=== PATIENT | female | born 1955 | race African-American/Black ===

== ENCOUNTER 2016-05-29 08:02 | Inpatient (IN) | payer MEDICARE, OTHER ==
--- NOTE | ~2016-05-29 | OP ---
Record Of [facility] [address] [place] [place]. [address] NAME: KARLENE NAVA : 57 STATUS : ADM IN PAT#: [id number] AGE: 60 ADM/REG DATE : 05/29/16 MR#: [id number] REPORT SERV DATE: 06/04/16 DICTATED BY: FRANKLYN RIVAS DATE: 06/03/16 REPORT STATUS : Draft TRANSCRIBED BY: MODSophia DATE: 06/03/16 DATE OF PROCEDURE: 06/03/2016 SURGEON: Franklyn Rivas DPM SANDWICH HAND: None. PREOPERATIVE DIAGNOSIS: Right hallux and second toe gangrene with osteomyelitis. POSTOPERATIVE DIAGNOSIS: Right hallux and second toe gangrene with osteomyelitis. PROCEDURES: 1. Right hallux amputation. 2. Right second toe amputation. 3. Right foot rotational skin flap for primary closure. ANESTHESIA: General. HEMOSTASIS: None. ESTIMATED BLOOD LOSS: Approximately 10 mL. MATERIALS UTILIZED: 4-0 Prolene. INJECTABLES: 20 mL of 0.5% ropivacaine plain. SPECIMENS: Bone sent off for microbiology as well as histopathology, remaining digit sent for gross pathology. COMPLICATIONS: None. CONDITION: Stable. JUSTIFICATION FOR PROCEDURE: The patient is a pleasant 60-year-old female, who presented to my office last week with a necrotic, gangrenous hallux and second toe, nonpalpable pulses, and multiple comorbidities. I sent the patient in for admission to be worked up, have advanced imaging in hopes for revascularization in order to optimize the patient for amputation of the infected digits. The patient understands all the risks, benefits, alternatives, and postop course in detail. The patient understands this is a limb salavage procedure, that she is at risk of losing her limb as well as her life. The patient has had a transmetatarsal amputation on the left foot. The patient admits to being noncompliant; poorly controlled with a long history of smoking cigarettes, being a poorly uncontrolled diabetic, on hemodialysis, poor peripheral vascular disease. Dr. Euceda recently performed a revascularization procedure of the right foot, which increased the temperature and caused the abscess and osteomyelitis underlying the second digit as well as the hallux to become more pronounced since revascularization. The increased temperature of the foot is a good Record Of [place] [id number] [facility] [place]. [address] NAME: KARLENE NAVA : 57 STATUS : ADM IN PAT#: [id number] AGE: 60 ADM/REG DATE : 05/29/16 MR#: [id number] REPORT SERV DATE: 06/04/16 DICTATED BY: FRANKLYN RIVAS DATE: 06/03/16 REPORT STATUS : Draft TRANSCRIBED BY: CLARKE DATE: 06/03/16 sign that we have increased blood flow and hope to heal this ulcer. The patient knows that she is at increased risk for wound complications. She understands this and we will proceed with surgical intervention today. Again, the patient understands that as in surgeries, there are no guarantees, none of which have been given, stated, or implied. DESCRIPTION OF PROCEDURE AND FINDINGS: The patient was wheeled into the operating room and placed on the operating room table in the supine position, at which time, anesthesia was administered by Anesthesia Service, and the right lower extremity was prepped, scrubbed, and draped in the usual sterile fashion. At this time, a skin marker was utilized to plan out an incision overlying the right hallux in a racquet-type fashion. It should be noted that the skin incision was extended to encompass the second digit as well in order to have 1 skin incision line to be able to heal in order to prevent any ischemic changes to a skin bridge in between the 2 incisions. Dissection was continued. It should be noted that the distal phalanx of the hallux as well as the proximal phalanx were soft as butter with liquefactive necrosis noted to encompass the entire aspect of the hallux. The hallux was disarticulated at the metatarsophalangeal joint as well as the second digit, passed off the back table. computer technologist was given instructions to break up the hallux into bone to be sent off for microbiology as well as histopathology. The wound was then copiously irrigated. All tendons were distracted distally and severed proximally. All areas of liquefactive necrosis were excised. There was no proximal tracking of purulence noted. The wound was copiously irrigated with sterile saline and we had healthy bleeding. Next, it should be noted that the healthy tissue on the lateral aspect of the second toe was utilized as a rotational skin flap in order to help with closure of this wound. The skin flap was placed down and we were able to cover the entire distal aspect of the incision and amputation site. Again, the wound was copiously irrigated and with no tension on the skin, skin reapproximation was performed with 4-0 Prolene in a horizontal mattress as well as simple suture fashion. The skin flap was able to be put into excellent apposition with remaining skin with no tension and it was completely tacked down and sutured in place with 4 0 Prolene. All remaining dogears were cut and we were able to close this wound primarily with no complications. There was noted to be capillary refill time of 4 seconds to the distal stump of the foot at this time. Next, adaptive soaked in Betadine was placed over the incision site followed by copious gauze, ABD pad, Kerlix, and a Coban dressing with no compression. The patient tolerated the procedure and anesthesia well, left the operating room, vital signs stable, and neurovascular status intact to her right lower extremity. The patient will be transferred back to the floor under the services of Dr. Paul. Specimens will be sent off for microbiology as well as histopathology in order to place the patient on adequate antibiotics prior to discharge. I will continue to follow up the patient while she is in-house as well as upon discharge. SB/MODL Record Of [address] [place]. [address] NAME: KARLENE NAVA : 57 STATUS : ADM IN [facility]#: [id number] AGE: 60 ADM/REG DATE : 05/29/16 MR#: [id number] REPORT SERV DATE: 06/04/16 DICTATED BY: FRANKLYN RIVAS DATE: 06/03/16 REPORT STATUS : Draft TRANSCRIBED BY: CLARKE DATE: 06/03/16 Franklyn Rivas DPM / [id number] CC: Federico Paul M.D.
--- NOTE | ~2016-05-29 | DS ---
Discharge Summary [place] [id number] [place]. [address] NAME: KARLENE NAVA : 57 STATUS : DIS IN PAT#: [id number] AGE: 60 ADM/REG DATE : 05/29/16 MR#: [id number] REPORT SERV DATE: 06/06/16 DICTATED BY: DATE: REPORT STATUS : Draft TRANSCRIBED BY: MODL DATE: 06/05/16 ADMISSION DATE: 05/29/2016 DISCHARGE DATE: 06/05/2016 DISCHARGE DIAGNOSES: 1. Right foot osteomyelitis with gangrenous area. 2. Peripheral vascular disease, status post arteriogram and percutaneous transluminal angioplasty. 3. Status post right hallux amputation, right second toe amputation, right foot rotational skin flap for primary closure. 4. End-stage renal disease. 5. Diabetes mellitus. 6. History of congestive heart failure. 7. Hypertension. CONSULTATIONS DURING HOSPITAL STAY: Cardiology, Dr. Dion Jalloh; Infectious Disease, Dr. Yrn Leblanc; Vascular Services, Dr. Jose Euceda; and Podiatry, Dr. Walden. CONDITION AT DISCHARGE: Stable post hemodialysis. DISCHARGE MEDICATIONS: Are as follows: ASA 325 mg daily, ASA 81 mg p.o. daily, Lipitor 80 mg p.o. at bedtime, PhosLo 2668 mg with meals, carvedilol 12.5 mg p.o. b.i.d., Plavix 75 mg daily, NovoLog via sliding scale, Prilosec 40 mg daily, Imdur 30 mg daily, Mag-Ox 400 mg p.o. b.i.d., Novolin insulin 30 units subcu daily. HOSPITAL COURSE: The patient was admitted on 05/29/2016 with a complaint of right foot osteomyelitis. She was seen in consultation by Dr. Dion Jalloh for preoperative surgical clearance. Dr. Jalloh's evaluation included the opinion that if open surgical intervention was required, the patient should undergo further cardiac workup including possible cardiac catheterization. She did undergo at his request an echocardiogram and thallium stress test. Ejection fraction was noted at 45% and she did show a mild area of ischemia with a previous inferior infarct. She was taken to surgery after clearance on 06/02/[address] Ebenezer Euceda, seen prior to that on 05/30/2016 by Yrn Leblanc for recommendations for antibiotics. She underwent antegrade right superficial femoral artery catheterization with angiography with atherectomy, CSI 1.5 to the mid and distal superficial femoral artery and secondary angioplasty via 4 x 120 balloon with atherectomy of the anterior tibial artery 1.5 catheter with secondary angioplasty by 2.5 x 40 balloon on 06/02/2016. On 06/03/2016, Podiatry undertook right hallux amputation with right second toe amputation, right foot rotational skin flap with primary closure. She was maintained on antibiotics including Maxipime and vancomycin, and had been seen in evaluation by Physical Therapy. Intermittent antibiotic recommendations were made by Infectious Disease. The patient will be dismissed today post hemodialysis to home with medications as listed above in stable condition. She will return for followup to Podiatry and will be seen at her usual hemodialysis appointment on Friday of this week post discharge. Discharge information will be provided by nursing staff prior to discharge today and followup will be completed as listed above. Discharge Summary [address] [address] NAME: KARLENE NAVA : 57 STATUS : DIS IN PAT#: [id number] AGE: 60 ADM/REG DATE : 05/29/16 MR#: [id number] REPORT SERV DATE: 06/06/16 DICTATED BY: DATE: REPORT STATUS : Draft TRANSCRIBED BY: CLARKE DATE: 06/05/16 /CLARKE Aftab Peters NP / [id number] CC: Federico Paul M.D.
--- NOTE | ~2016-05-29 | OP ---
Record Of Operation [facility] [address] [place]. [address] NAME: KARLENE NAVA : 57 STATUS : ADM IN [facility]#: [id number] AGE: 60 ADM/REG DATE : 05/29/16 MR#: [id number] REPORT SERV DATE: 06/02/16 DICTATED BY: JOSE EUCEDA DATE: 06/01/16 REPORT STATUS : Draft TRANSCRIBED BY: MODL DATE: 06/01/16 DATE OF PROCEDURE: 05/31/2016 PREPROCEDURE DIAGNOSIS: Gangrene right first and second toes. POSTOPERATIVE DIAGNOSES: 1. Right superficial femoral artery, mid and distal critical stenosis. 2. About 80% stenosis of the proximal right anterior tibial artery. 3. Occluded peroneal and posterior tibial artery on the right side. PROCEDURE PERFORMED: 1. Antegrade right superficial femoral artery catheterization with angiography. 2. Atherectomy, CSI 1.5 of the mid and distal superficial femoral artery secondary angioplasty 4 x 120 balloon. 3. CSI atherectomy of the anterior tibial artery 1.5 catheter with secondary angioplasty 2.5 x 40 balloon. ATTENDING SURGEON: Jose Euceda M.D. ANESTHESIA: Local MAC. COMPLICATIONS: None. INDICATION FOR PROCEDURE: Secondary to this very pleasant 60-year-old female presenting with evidence of critical limb insufficiency of the right lower extremity with associated gangrene of the 1st and 2nd toes. Recommendations were made for arteriography to further define her peripheral vascular system and repair this if appropriate. Risks and benefits discussed. Consent was obtained. DETAILS OF PROCEDURE: The patient was brought to the endovascular operating room, placed in supine position, prepped and draped in routine sterile fashion with attention to the right upper extremity. The right superficial femoral artery was catheterized with micropuncture needle followed by a wire and sheath under ultrasound guidance. Pictures of these structures were taken and placed on the chart. Next, a wire was then passed into the superficial femoral artery and a sheath was then placed. Arteriogram demonstrated a patent proximal superficial femoral artery but mid and distal superficial femoral artery had tandem critical stenoses in the 95% range. Next, a wire was passed through this area. About 3000 units of heparin was given and allowed to circulate. Atherectomy was then performed with a CSI 1.5 catheter; standard triple passed technique with secondary angioplasty 4 x 120 balloon. This established excellent patency of the mid and distal superficial femoral artery. Next, a catheter was advanced down to the popliteal artery at the knee level. Arteriogram demonstrated occluded posterior tibial artery and peroneal artery and a patent anterior tibial artery to the ankle. There was evidence of 80% stenosis of the proximal anterior tibial artery, however, this was determined after cannulation of the anterior tibial artery with a straight catheter. Next, a wire was then placed. Atherectomy was then performed with CSI 1.5 catheter with low spinning technique x2, 20 second duration followed Record Of Operation [place] [facility] [id number] [place]. [address] NAME: KARLENE NAVA : 57 STATUS : ADM IN PAT#: [id number] AGE: 60 ADM/REG DATE : 05/29/16 MR#: [id number] REPORT SERV DATE: 06/02/16 DICTATED BY: JOSE EUCEDA DATE: 06/01/16 REPORT STATUS : Draft TRANSCRIBED BY: MODL DATE: 06/01/16 by a 2.5 x 40 angioplasty adequately reconstructing the anterior tibial artery. With this completed, flow was established into the forefoot via the anterior tibial artery. At this point, wires, catheters, and sheaths were then removed. The superficial femoral artery was then closed with a Star[employer]. The patient tolerated the procedure well. CL/MODL Jose Euceda M.D. / [id number] CC: Federico Paul M.D.
--- NOTE | ~2016-05-29 | HP ---
History And Physical [place] [address] [address] [place]. [address] NAME: KARLENE CASE : 57 STATUS : ADM IN [facility]#: [id number] AGE: 60 ADM/REG DATE : 05/29/16 MR#: [id number] REPORT SERV DATE: 05/29/16 DICTATED BY: DATE: REPORT STATUS : Draft TRANSCRIBED BY: MODL DATE: 05/29/16 DATE OF ADMISSION: 05/29/2016 CHIEF COMPLAINT: Right foot osteomyelitis. HISTORY OF PRESENT ILLNESS: Ms. Case is a 60-year-old black female, who dialyzes on Friday, Friday, and Friday at [facility]. She has end-stage renal disease in setting of hypertension and diabetes. She does have a history of peripheral vascular disease with amputation of multiple toes to the left foot as well. She presents to the hospital being seen by Podiatry and admitted to our service. She has had three weeks of discoloration and pain to her left great toe and second toe and now she has developed pain that extends all the way up into her lower right leg. She does have some warmth to it. She denies any fevers or chills. No shortness of breath. No nausea. No systemic symptoms. She has had no problems on dialysis. No chest pain, tightness, or pressure. She does have a history of CHF, but does not have any problems with fluid as of late. She does not have a current Cardiology. 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 PAST MEDICAL HISTORY: End-stage renal disease, CHF, diabetes, hypertension, left foot toe amputations, hysterectomy, and . ALLERGIES: NONE. SOCIAL HISTORY: She lives with her mother. Smokes five to six cigarettes per day. No alcohol or illicit drug use. MEDICATIONS AT HOME: Medicine list reviewed. Please see list. FAMILY MEDICAL HISTORY: Negative for end-stage renal disease. REVIEW OF SYSTEMS: A 12-point review of systems was obtained and is negative with the exception of that in the HPI. PHYSICAL EXAMINATION: VITAL SIGNS: Blood pressure 124/58, pulse 82, respiratory rate 14, O2 saturation 99%, and temperature is 99.2. GENERAL: This is a pleasant, cooperative black female. She is awake, alert, and oriented x3. No acute distress. Answers question appropriately. HEENT: Normocephalic and atraumatic. Conjunctivae clear. Sclerae anicteric. Pupils are equal and round. Oral mucosa is moist. NECK: Supple. Carotids are brisk. Neck veins flat. No lymphadenopathy. LUNGS: Respirations are even and unlabored. Breath sounds clear to auscultation. HEART: Rate is regular. No murmur, rub, or gallop. ABDOMEN: Soft, nontender. Bowel sounds active. No masses. No hepatosplenomegaly. No bruits. No CVA tenderness. BACK: Within normal limits. History And Physical [address] [address] NAME: KARLENE CASE : 57 STATUS : ADM IN [facility]#: [id number] AGE: 60 ADM/REG DATE : 05/29/16 MR#: [id number] REPORT SERV DATE: 05/29/16 DICTATED BY: DATE: REPORT STATUS : Draft TRANSCRIBED BY: MODL DATE: 05/29/16 EXTREMITIES: Left foot; all the toes have been amputated. I do not see no signs of infection to that foot. To the right foot, her great toe and second toe have gangrenous area with tenderness. I do not see distinct drainage. The foot is warm. She has warmth all the way to her ankle noted with some possible mild erythema and no open lesions that I can see. NEUROLOGIC: No focal deficits. Mood and affect, pleasant and appropriate. PERTINENT LABORATORIES AND X-RAYS: WBCs 8000, H and H 10 and 32, platelets 108,000. Sodium 135, potassium 4.4, chloride 96, CO2 of 27, BUN of 18, creatinine 4.7, calcium of 9. CRP of 118. IMPRESSION: 1. Right foot infection/osteomyelitis with gangrene. 2. End-stage renal disease, [facility]. 3. Diabetes, uncontrolled. 4. Hypertension. 5. History of congestive heart failure. 6. Peripheral vascular disease. PLAN: Admit. Podiatry already consulted Vascular Surgery, and Dr. Euceda and his nurse practitioner have seen the patient. We will increase her sliding scale insulin. Usual medications. DVT prophylaxis. Next dialysis is due on Friday. Work on blood sugar control at present, antibiotics, pain control. Further orders and recommendations pending clinical course. JOHN/CLARKE CONCHITA Fortune / [id number] CC: Federico Paul M.D.
--- NOTE | ~2016-05-29 | CN ---
Consultation Report [facility] [address] [place]. [address] NAME: KARLENE NAVA : 57 STATUS : ADM IN [facility]#: [id number] AGE: 60 ADM/REG DATE : 05/29/16 MR#: [id number] REPORT SERV DATE: 05/30/16 DICTATED BY: YRN TINSLEY DATE: 05/29/16 REPORT STATUS : Draft TRANSCRIBED BY: MODL DATE: 05/29/16 INFECTIOUS DISEASE CONSULT DATE OF CONSULTATION: REASON FOR CONSULT: Possible right foot infection. HISTORY OF PRESENT ILLNESS: This is a 60 years old black lady with history of end-stage renal disease on hemodialysis, diabetes, hypertension, peripheral vascular disease, possible congestive heart failure who was sent from the podiatry office for right first and second toes dark discoloration. The patient states that she had a right great toe onychogryphosis with a long thick nail pushing on the second toe. She tried to trim it and in the process apparently injured the second toe. The second toenail came off, and she had some bleeding there. At some point, she developed dark discoloration of both the second and first toes distally and some bleeding. She was sent from dialysis to podiatry today. She has not received any antibiotics. She has not reported any fever or chills. She did have some pain in the right lower cueto. No vomiting, no nausea, no diarrhea, no shortness of breath. PAST MEDICAL HISTORY: As I mentioned above plus hysterectomy. SOCIAL HISTORY: She is a smoker. She lives with her mother. FAMILY HISTORY: Heart disease. MEDICATIONS: On admission; aspirin, calcium acetate, carvedilol, insulin, isosorbide mononitrate, magnesium, omeprazole, pravastatin. ALLERGIES: NONE. PHYSICAL EXAMINATION: GENERAL: On exam, she is alert, awake. HEENT: She is edentulous. LUNGS: Seem clear to auscultation. HEART: Regular rhythm. ABDOMEN: Obese, soft. EXTREMITIES: The left foot is missing all the toes. They are all amputated. Right foot dark discoloration of the distal second and first toes. She has a thick long first toenail with some blood crusting at the base of this. It is tender to palpation. I could not elicit any bleeding from it. The second toe is missing the nail, has some also dark blood crusting at the site but no purulence. I could not appreciate the right dorsalis pedis and posterior tibial pulses. LABORATORY WORK: Creatinine 4.7, WBC 8, hemoglobin 11, platelets 108, sedimentation rate 97. Consultation Report [place] [address] [place]. [address] NAME: KARLENE NAVA : 57 STATUS : ADM IN PAT#: [id number] AGE: 60 ADM/REG DATE : 05/29/16 MR#: [id number] REPORT SERV DATE: 05/30/16 DICTATED BY: YRN TINSLEY DATE: 05/29/16 REPORT STATUS : Draft TRANSCRIBED BY: MODL DATE: 05/29/16 IMAGING: Ultrasound showed no flow in the right great toe. There is monophasic flow in the calves, triphasic flow in the right common femoral artery, biphasic in the right popliteal, monophasic in the right posterior tibial and dorsalis pedis. ASSESSMENT AND PLAN: 1. Right first and second distal toe discoloration and dry blood scabs but unclear if any infection here. There is no fever, no purulence, no leukocytosis. I discussed with Dr. Knight with Podiatry, and I favor observing off antibiotics at this point, at least until some operative cultures will be obtained. Check some blood cultures and hold the antibiotics. 2. End-stage renal disease, on hemodialysis. 3. Diabetes. 4. Hypertension. 5. Peripheral vascular disease. JIMMY/CLARKE Yrn Tinsley M.D. / [id number] CC: Federico Paul M.D.
--- NOTE | ~2016-05-29 | CN ---
Consultation Report [address] [place]. [address] NAME: KARLENE CASE : 57 STATUS : ADM IN [facility]#: [id number] AGE: 60 ADM/REG DATE : 05/29/16 MR#: [id number] REPORT SERV DATE: 05/29/16 DICTATED BY: DION DIAS DATE: 05/29/16 REPORT STATUS : Draft TRANSCRIBED BY: MODL DATE: 05/29/16 CARDIOVASCULAR CONSULTATION DATE OF CONSULTATION: 05/29/2016 This is a cardiovascular consultation requested by Dr. Jose Euceda. INDICATION: Preoperative evaluation for vascular surgery. HISTORY OF PRESENT ILLNESS: Ms Case is a 60-year-old woman with a longstanding history of hypertension; hypercholesterolemia; type 2 diabetes; and end-stage renal disease, on hemodialysis. She reportedly has a history of congestive heart failure. The details of this are unclear. She does not see a microstrategy architect developer regularly. She is admitted with gangrene of her right foot and toes. She is being considered for amputation and possibly right leg surgical revascularization. She is quite functionally limited by her peripheral vascular disease and multiple medical problems. She does not usually get chest pain or dyspnea. PAST MEDICAL HISTORY: 1. Type 2 diabetes. 2. Hypertension. 3. Hypercholesterolemia. 4. End-stage renal disease, on hemodialysis. 5. Peripheral vascular disease. 6. Right toe gangrene. SOCIAL HISTORY: She does not smoke or drink alcohol. FAMILY HISTORY: There is no family history of early coronary artery disease. She does report her mother has congestive heart failure. REVIEW OF SYSTEMS: A complete review of systems was negative in detail except as mentioned above in the HPI. ALLERGIES: NO KNOWN DRUG ALLERGIES. MEDICATIONS: Include aspirin 81 mg daily, calcium, Coreg 12.5 mg twice a day, insulin, Imdur 30 mg daily, magnesium oxide, Prilosec 40 mg daily, and Pravachol 20 mg daily. PHYSICAL EXAMINATION: VITAL SIGNS: Blood pressure 130/70, respiratory rate of 14, and heart rate of 75 and regular. GENERAL: Comfortable in no acute distress. HEENT: Anicteric. No xanthelasma. Lips without cyanosis. NECK: No JVD. Carotids 2+ and symmetric. No carotid bruits. LUNGS: CTA bilaterally. No wheezes or rhonchi. No accessory muscle use. Consultation Report [address] [place]. [address] NAME: KARLENE CASE : 57 STATUS : ADM IN [facility]#: [id number] AGE: 60 ADM/REG DATE : 05/29/16 MR#: [id number] REPORT SERV DATE: 05/29/16 DICTATED BY: DION DIAS DATE: 05/29/16 REPORT STATUS : Draft TRANSCRIBED BY: CLARKE DATE: 05/29/16 COR: RRR. Normally placed PMI. Normal S1 and S2. No murmurs, rubs or gallops. ABD: Soft, nontender, nondistended. Normal bowel sounds. No abdominal bruits. EXT: Gangrene is noted of the great toe on the right. SKIN: Warm. Dry. No venous stasis changes. MS: No kyphosis. NEURO/PSYCH: Oriented x3. No anxiety or depression. DIAGNOSTIC DATA: EKG: Telemetry strip shows normal sinus rhythm. EKG is currently pending. IMPRESSION: This is a 60-year-old woman with known peripheral vascular disease; diabetes; hypertension; hypercholesterolemia; and end-stage renal disease, on hemodialysis. In addition to these multiple cardiac risk factors, she said she has a history of congestive heart failure with details unclear. Before surgery, I have recommended an echocardiogram to assess LV function. Especially if surgical revascularization is being considered, I think a stress thallium study would provide good preoperative risk stratification. BROOKE/CLARKE Dion Dias M.D. / [id number] CC: Federico Paul M.D.
[2016-05-29 10:08] LABS: BASOPHILS 0.2 %; BASOPHILS ABSOLUTE 0.02 10/3/uL (0.0-0.16); EOSINOPHILS 1.7 %; EOSINOPHILS ABSOLUTE 0.14 10/3/uL (0.0-0.53); IMMATURE GRANULOCYTES 0.5 %; IMMATURE GRANULOCYTES ABSOLUTE 0.04 10/3/uL (0.0-0.11); LYMPHOCYTES 13.8 %; LYMPHOCYTES ABSOLUTE 1.12 10/3/uL (0.67-4.30); MONOCYTES 12.1 %; MONOCYTES ABSOLUTE 0.98 10/3/uL (0.21-1.20); NEUTROPHILS 71.7 %; NEUTROPHILS ABSOLUTE 5.82 10/3/uL (2.02-8.40); WHITE BLOOD CELLS 8.1 10/3/uL (4.5-10.5)
[2016-05-29 10:10] LABS: HEMATOCRIT 32.7 % (36.0-48.0); HEMOGLOBIN 10.9 g/dL (12.0-16.0); MANUAL DIFF NO %; MEAN CORPUS HGB CONC 33.3 g/dL (32.0-36.0); MEAN CORPUSCULAR HEMOGLOB 30.3 pg (26.0-34.0); MEAN CORPUSCULAR VOLUME 90.8 fL (80-100); PLATELET COUNT 108 10/3/uL (150-400); RBC DISTRIBUTION WIDTH 12.7 % (12.0-16.0)
[2016-05-29 10:27] LABS: BUN (BLOOD UREA NITROGEN) 18 MG/DL (6-23); CHLORIDE, SERUM 96 MMOL/L (96-112); CO2 (CARBON DIOXIDE) 27 MMOL/L (24-34); CREATININE 4.72 MG/DL (0.55-1.02); GFR AFRICAN AMERICAN 11 ML/MIN (>=60); GFR NON AFRICAN AMERICAN 9 ML/MIN (>=60); GLUCOSE, SERUM 308 MG/DL (60-99); POTASSIUM, SERUM 4.4 MMOL/L (3.5-5.3); SODIUM, SERUM 135 MMOL/L (135-148)
[2016-05-29 10:53] LABS: SED RATE 97 MM/HR (0-20)
[2016-05-29] MEDS ORDERED: PHOSLO PO (11:33)
[2016-05-29] MEDS ORDERED: PRILOSEC40 MG PO (11:34)
[2016-05-29] MEDS ORDERED: IMDUR30 PO (11:35)
[2016-05-29] MEDS ORDERED: MAGOX4 PO (11:36)
[2016-05-29] MEDS ORDERED: COREG12 PO (11:36)
[2016-05-29] MEDS ORDERED: ASAB PO (11:37)
[2016-05-29] MEDS ORDERED: PRAVAC PO (11:37)
[2016-05-29] MEDS ORDERED: INSNOVN SC (11:43)
[2016-05-29] MEDS ORDERED: NOVOLOG SC (15:36)
[2016-05-31 08:21] LABS: BASOPHILS 0.4 %; BASOPHILS ABSOLUTE 0.03 10/3/uL (0.0-0.16); EOSINOPHILS 1.7 %; EOSINOPHILS ABSOLUTE 0.14 10/3/uL (0.0-0.53); HEMOGLOBIN 9.1 g/dL (12.0-16.0); IMMATURE GRANULOCYTES 0.6 %; IMMATURE GRANULOCYTES ABSOLUTE 0.05 10/3/uL (0.0-0.11); LYMPHOCYTES 18.5 %; LYMPHOCYTES ABSOLUTE 1.53 10/3/uL (0.67-4.30); MEAN CORPUS HGB CONC 33.3 g/dL (32.0-36.0); MEAN CORPUSCULAR HEMOGLOB 29.7 pg (26.0-34.0); MEAN CORPUSCULAR VOLUME 89.2 fL (80-100); MEAN PLATELET VOLUME 12.7 fL (9.2-13.0); MONOCYTES 7.6 %; MONOCYTES ABSOLUTE 0.63 10/3/uL (0.21-1.20); NEUTROPHILS 71.2 %; NEUTROPHILS ABSOLUTE 5.89 10/3/uL (2.02-8.40); PLATELET COUNT 131 10/3/uL (150-400); RBC DISTRIBUTION WIDTH 12.5 % (12.0-16.0); RED CELL COUNT 3.06 10/6/uL (4.0-5.6); WHITE BLOOD CELLS 8.3 10/3/uL (4.5-10.5)
[2016-05-31 08:22] LABS: HEMATOCRIT 27.3 % (36.0-48.0); MANUAL DIFF NO %
[2016-05-31 08:35] LABS: ALBUMIN 2.5 G/DL (3.5-5.0); CHLORIDE, SERUM 101 MMOL/L (96-112); CO2 (CARBON DIOXIDE) 25 MMOL/L (24-34); PHOSPHORUS, SERUM 4.3 MG/DL (2.5-4.5); SODIUM, SERUM 138 MMOL/L (135-148)
[2016-05-31 08:36] LABS: BUN (BLOOD UREA NITROGEN) 49 MG/DL (6-23); GFR AFRICAN AMERICAN 6 ML/MIN (>=60); GFR NON AFRICAN AMERICAN 5 ML/MIN (>=60); GLUCOSE, SERUM 196 MG/DL (60-99); POTASSIUM, SERUM 5.4 MMOL/L (3.5-5.3)
[2016-06-01 05:52] LABS: BASOPHILS 0.1 %; BASOPHILS ABSOLUTE 0.01 10/3/uL (0.0-0.16); EOSINOPHILS 1.1 %; EOSINOPHILS ABSOLUTE 0.08 10/3/uL (0.0-0.53); HEMOGLOBIN 9.6 g/dL (12.0-16.0); IMMATURE GRANULOCYTES 0.4 %; IMMATURE GRANULOCYTES ABSOLUTE 0.03 10/3/uL (0.0-0.11); LYMPHOCYTES ABSOLUTE 1.09 10/3/uL (0.67-4.30); MEAN CORPUS HGB CONC 31.9 g/dL (32.0-36.0); MEAN CORPUSCULAR HEMOGLOB 29.4 pg (26.0-34.0); MEAN PLATELET VOLUME 12.6 fL (9.2-13.0); MONOCYTES 6.7 %; MONOCYTES ABSOLUTE 0.49 10/3/uL (0.21-1.20); NEUTROPHILS 76.7 %; NEUTROPHILS ABSOLUTE 5.58 10/3/uL (2.02-8.40); PLATELET COUNT 133 10/3/uL (150-400); RBC DISTRIBUTION WIDTH 12.6 % (12.0-16.0); RED CELL COUNT 3.26 10/6/uL (4.0-5.6); WHITE BLOOD CELLS 7.3 10/3/uL (4.5-10.5)
[2016-06-01 05:54] LABS: HEMATOCRIT 30.1 % (36.0-48.0); MANUAL DIFF NO %; MEAN CORPUSCULAR VOLUME 92.3 fL (80-100)
[2016-06-01 06:16] LABS: ALBUMIN 2.3 G/DL (3.5-5.0); CALCIUM, SERUM 8.5 MG/DL (8.5-10.4); CHLORIDE, SERUM 100 MMOL/L (96-112); CO2 (CARBON DIOXIDE) 25 MMOL/L (24-34); POTASSIUM, SERUM 5.3 MMOL/L (3.5-5.3); SODIUM, SERUM 136 MMOL/L (135-148)
[2016-06-01 06:18] LABS: BUN (BLOOD UREA NITROGEN) 29 MG/DL (6-23); CREATININE 5.92 MG/DL (0.55-1.02); GFR AFRICAN AMERICAN 8 ML/MIN (>=60); GFR NON AFRICAN AMERICAN 7 ML/MIN (>=60); GLUCOSE, SERUM 271 MG/DL (60-99)
[2016-06-01 11:23] LABS: INTERNATIONAL NORMAL RATI 1.1 UNITS (-); PROTIME (NOT ORD) 14.3 SEC (12.0-14.5)
[2016-06-02 04:07] LABS: INTERNATIONAL NORMAL RATI 1.2 UNITS (-); PROTIME (NOT ORD) 14.6 SEC (12.0-14.5)
[2016-06-02 04:13] LABS: ALBUMIN 2.4 G/DL (3.5-5.0); CHLORIDE, SERUM 97 MMOL/L (96-112); CO2 (CARBON DIOXIDE) 26 MMOL/L (24-34); PHOSPHORUS, SERUM 4.5 MG/DL (2.5-4.5); POTASSIUM, SERUM 5.2 MMOL/L (3.5-5.3); SODIUM, SERUM 135 MMOL/L (135-148)
[2016-06-02 04:14] LABS: BUN (BLOOD UREA NITROGEN) 41 MG/DL (6-23); CALCIUM, SERUM 9.5 MG/DL (8.5-10.4); CREATININE 7.75 MG/DL (0.55-1.02); GFR AFRICAN AMERICAN 6 ML/MIN (>=60); GFR NON AFRICAN AMERICAN 5 ML/MIN (>=60); GLUCOSE, SERUM 170 MG/DL (60-99)
[2016-06-03 07:55] LABS: BASOPHILS 0.3 %; BASOPHILS ABSOLUTE 0.03 10/3/uL (0.0-0.16); EOSINOPHILS 3.5 %; EOSINOPHILS ABSOLUTE 0.31 10/3/uL (0.0-0.53); IMMATURE GRANULOCYTES 0.5 %; IMMATURE GRANULOCYTES ABSOLUTE 0.04 10/3/uL (0.0-0.11); LYMPHOCYTES 9.8 %; LYMPHOCYTES ABSOLUTE 0.86 10/3/uL (0.67-4.30); MEAN CORPUS HGB CONC 33.3 g/dL (32.0-36.0); MEAN CORPUSCULAR HEMOGLOB 30.3 pg (26.0-34.0); MEAN CORPUSCULAR VOLUME 90.9 fL (80-100); MONOCYTES 9.7 %; MONOCYTES ABSOLUTE 0.85 10/3/uL (0.21-1.20); NEUTROPHILS 76.2 %; NEUTROPHILS ABSOLUTE 6.69 10/3/uL (2.02-8.40); PLATELET COUNT 171 10/3/uL (150-400); RBC DISTRIBUTION WIDTH 12.3 % (12.0-16.0); RED CELL COUNT 2.97 10/6/uL (4.0-5.6); WHITE BLOOD CELLS 8.8 10/3/uL (4.5-10.5)
[2016-06-03 08:00] LABS: MANUAL DIFF NO %
[2016-06-03 08:06] LABS: ALBUMIN 2.3 G/DL (3.5-5.0); CALCIUM, SERUM 9.5 MG/DL (8.5-10.4); CHLORIDE, SERUM 101 MMOL/L (96-112); CO2 (CARBON DIOXIDE) 23 MMOL/L (24-34); PHOSPHORUS, SERUM 4.5 MG/DL (2.5-4.5); POTASSIUM, SERUM 5.1 MMOL/L (3.5-5.3); SODIUM, SERUM 136 MMOL/L (135-148)
[2016-06-03 08:07] LABS: BUN (BLOOD UREA NITROGEN) 50 MG/DL (6-23); CREATININE 9.04 MG/DL (0.55-1.02); GFR AFRICAN AMERICAN 5 ML/MIN (>=60); GFR NON AFRICAN AMERICAN 4 ML/MIN (>=60); GLUCOSE, SERUM 120 MG/DL (60-99)
[2016-06-04 07:03] LABS: BASOPHILS 0.4 %; BASOPHILS ABSOLUTE 0.03 10/3/uL (0.0-0.16); EOSINOPHILS 4.2 %; EOSINOPHILS ABSOLUTE 0.32 10/3/uL (0.0-0.53); HEMATOCRIT 29.6 % (36.0-48.0); HEMOGLOBIN 9.1 g/dL (12.0-16.0); IMMATURE GRANULOCYTES 0.5 %; IMMATURE GRANULOCYTES ABSOLUTE 0.04 10/3/uL (0.0-0.11); LYMPHOCYTES 9.1 %; LYMPHOCYTES ABSOLUTE 0.69 10/3/uL (0.67-4.30); MEAN CORPUSCULAR HEMOGLOB 28.7 pg (26.0-34.0); MEAN CORPUSCULAR VOLUME 93.4 fL (80-100); MEAN PLATELET VOLUME 12.2 fL (9.2-13.0); MONOCYTES 11.2 %; MONOCYTES ABSOLUTE 0.85 10/3/uL (0.21-1.20); NEUTROPHILS 74.6 %; NEUTROPHILS ABSOLUTE 5.66 10/3/uL (2.02-8.40); PLATELET COUNT 204 10/3/uL (150-400); RBC DISTRIBUTION WIDTH 12.5 % (12.0-16.0); RED CELL COUNT 3.17 10/6/uL (4.0-5.6); WHITE BLOOD CELLS 7.6 10/3/uL (4.5-10.5)
[2016-06-04 07:06] LABS: MANUAL DIFF NO %; MEAN CORPUS HGB CONC 30.7 g/dL (32.0-36.0)
[2016-06-04 07:21] LABS: ALBUMIN 2.4 G/DL (3.5-5.0); BUN (BLOOD UREA NITROGEN) 31 MG/DL (6-23); CALCIUM, SERUM 8.7 MG/DL (8.5-10.4); CHLORIDE, SERUM 101 MMOL/L (96-112); CO2 (CARBON DIOXIDE) 29 MMOL/L (24-34); CREATININE 6.59 MG/DL (0.55-1.02); GFR AFRICAN AMERICAN 7 ML/MIN (>=60); GFR NON AFRICAN AMERICAN 6 ML/MIN (>=60); GLUCOSE, SERUM 140 MG/DL (60-99); PHOSPHORUS, SERUM 4.1 MG/DL (2.5-4.5); POTASSIUM, SERUM 5.1 MMOL/L (3.5-5.3); SODIUM, SERUM 139 MMOL/L (135-148)
[2016-06-05 05:03] LABS: BASOPHILS 0.6 %; BASOPHILS ABSOLUTE 0.04 10/3/uL (0.0-0.16); EOSINOPHILS ABSOLUTE 0.34 10/3/uL (0.0-0.53); HEMATOCRIT 29.8 % (36.0-48.0); HEMOGLOBIN 9.4 g/dL (12.0-16.0); IMMATURE GRANULOCYTES 0.9 %; IMMATURE GRANULOCYTES ABSOLUTE 0.06 10/3/uL (0.0-0.11); LYMPHOCYTES 13.4 %; LYMPHOCYTES ABSOLUTE 0.92 10/3/uL (0.67-4.30); MANUAL DIFF NO %; MEAN CORPUS HGB CONC 31.5 g/dL (32.0-36.0); MEAN CORPUSCULAR HEMOGLOB 29.9 pg (26.0-34.0); MEAN CORPUSCULAR VOLUME 94.9 fL (80-100); MEAN PLATELET VOLUME 12.1 fL (9.2-13.0); MONOCYTES 12.2 %; MONOCYTES ABSOLUTE 0.84 10/3/uL (0.21-1.20); NEUTROPHILS 67.9 %; NEUTROPHILS ABSOLUTE 4.66 10/3/uL (2.02-8.40); PLATELET COUNT 200 10/3/uL (150-400); RBC DISTRIBUTION WIDTH 12.3 % (12.0-16.0); RED CELL COUNT 3.14 10/6/uL (4.0-5.6); WHITE BLOOD CELLS 6.9 10/3/uL (4.5-10.5)
[2016-06-05 05:21] LABS: ALBUMIN 2.3 G/DL (3.5-5.0); BUN (BLOOD UREA NITROGEN) 42 MG/DL (6-23); CALCIUM, SERUM 9.3 MG/DL (8.5-10.4); CHLORIDE, SERUM 102 MMOL/L (96-112); CO2 (CARBON DIOXIDE) 30 MMOL/L (24-34); CREATININE 8.21 MG/DL (0.55-1.02); GFR AFRICAN AMERICAN 6 ML/MIN (>=60); GFR NON AFRICAN AMERICAN 5 ML/MIN (>=60); GLUCOSE, SERUM 141 MG/DL (60-99); PHOSPHORUS, SERUM 4.1 MG/DL (2.5-4.5); POTASSIUM, SERUM 5.3 MMOL/L (3.5-5.3); SODIUM, SERUM 140 MMOL/L (135-148)
[2016-06-05] MEDS ORDERED: ASA5GR PO (12:34)
[2016-06-05] MEDS ORDERED: PLAVIX PO (12:55)
[2016-06-05] MEDS ORDERED: PCET PO ×2 (12:56→14:57)
[2016-06-05] MEDS ORDERED: LIPITOR40 PO (12:56)
[2016-06-05] MEDS ORDERED: VANCO1P IV (14:57)
[2016-06-12] MEDS ORDERED: MAALOX PO (07:34)
== END 2016-06-05 15:45 | disposition home or self-care (01) | DRG 270 ==
LOC: 4SO 08:02
PROVIDERS: Internal Medicine Nephrology; Nurse Practitioner; Podiatrist; Specialist
PROC: B41F1ZZ Fluoroscopy of Right Lower Extremity Arteries using Low Osmolar Contrast (ICD-10-PCS; 2016-05-31 17:30)
PROC: 04CP3ZZ Extirpation of Matter from Right Anterior Tibial Artery, Percutaneous Approach (ICD-10-PCS; 2016-05-31 17:30)
PROC: 047P3ZZ Dilation of Right Anterior Tibial Artery, Percutaneous Approach (ICD-10-PCS; 2016-05-31 17:30)
PROC: B44LZZ3 Ultrasonography of Femoral Artery, Intravascular (ICD-10-PCS; 2016-05-31 17:30)
PROC: 04CK3ZZ Extirpation of Matter from Right Femoral Artery, Percutaneous Approach (ICD-10-PCS; 2016-05-31 17:30)
PROC: 047K3ZZ Dilation of Right Femoral Artery, Percutaneous Approach (ICD-10-PCS; 2016-05-31 17:30)
PROC: 5A1D60Z (ICD-10-PCS; 2016-05-31 17:30)
PROC: 0HXMXZZ Transfer Right Foot Skin, External Approach (ICD-10-PCS; principal; 2016-06-03 11:45)
PROC: 0Y6P0Z0 Detachment at Right 1st Toe, Complete, Open Approach (ICD-10-PCS; principal; 2016-06-03 11:45)
PROC: 0Y6R0Z0 Detachment at Right 2nd Toe, Complete, Open Approach (ICD-10-PCS; principal; 2016-06-03 11:45)
DX: E11.52 Type 2 diabetes mellitus with diabetic peripheral angiopathy with gangrene (principal); N18.6 End stage renal disease; I13.2 Hypertensive heart and chronic kidney disease with heart failure and with stage 5 chronic kidney disease, or end stage renal disease; I47.2 Ventricular tachycardia; E11.22 Type 2 diabetes mellitus with diabetic chronic kidney disease; M86.8X7 Other osteomyelitis, ankle and foot; E11.65 Type 2 diabetes mellitus with hyperglycemia; E11.69 Type 2 diabetes mellitus with other specified complication; I50.9 Heart failure, unspecified; Z99.2 Dependence on renal dialysis; Z79.4 Long term (current) use of insulin; F17.210 Nicotine dependence, cigarettes, uncomplicated; Z89.422 Acquired absence of other left toe(s); Z79.82 Long term (current) use of aspirin; E78.00 Pure hypercholesterolemia, unspecified
CPT/HCPCS: 37225; 37229; 73630-RT; 73718-RT; 75710; 75774; 78452; 80048; 80069; 80202; 82962; 83735; 84132; 85025; 85610; 85652; 86140; 87015; 87040; 87070; 87075; 87077; 87102; 87116; 87186; 87205; 88305; 88311; 93005; 93017; 93923; 97161-GP; A9270-GY; A9502; C1724; C1725; C1769; C1894; C8929; G0257; G8978-CK-GP; G8979-CJ-GP; J0153; J0330; J0692; J2250; J2405; J2543; J2795; J3010; J3370; Q9957; Q9967

== ENCOUNTER 2016-06-12 07:38 | Inpatient (IN) | payer MEDICARE, OTHER ==
--- NOTE | ~2016-06-12 | CN ---
Consultation Report [facility] [address] [place]. [address] NAME: KARLENE CASE : 57 STATUS : ADM IN [facility]#: [id number] AGE: 60 ADM/REG DATE : 06/12/16 MR#: [id number] REPORT SERV DATE: 06/13/16 DICTATED BY: DION FITZGERALD DATE: 06/12/16 REPORT STATUS : Draft TRANSCRIBED BY: CLARKE DATE: 06/12/16 CARDIOLOGY CONSULTATION DATE OF CONSULTATION: REQUESTING PHYSICIAN: Kali Suarez M.D. REASON FOR CONSULTATION: Chest discomfort. [facility] PHYSICIAN: Dr. Jalloh. HISTORY OF PRESENT ILLNESS: Ms. Case is a 60-year-old woman who is a dialysis patient, who has been dialyzed for five years. She was admitted to the hospital a week ago with gangrene of her toe and an infection, now status post amputation and PCI of the foot. She initially did well, went to dialysis earlier today and began to have substernal chest tightness. This was a new sensation for her. It was a heavy sensation with mild discomfort. She would not have this before. She was at rest and it improved with nitroglycerin, she was brought to [facility]. Troponins were borderline and elevated. An EKG shows chronic lateral ST segment changes. Her pain is resolved. She has had no exertional chest pain before this. No dyspnea. REVIEW OF SYSTEMS: As per the history of present illness. Ten other systems are negative or noncontributory. PAST MEDICAL HISTORY: 1. Diabetes. 2. Hypertension. 3. Hypercholesterolemia. 4. Next end-stage renal disease, on hemodialysis. 5. Peripheral vascular disease, status post revascularization by Dr. Hester and amputation of toes due to infection. FAMILY HISTORY: No early heart disease. SOCIAL HISTORY: No tobacco. No alcohol. ALLERGIES: NO KNOWN DRUG ALLERGIES. HOME MEDICATIONS: Aspirin 81 daily, Lipitor 40 daily, PhosLo, carvedilol 12.5 mg p.o. b.i.d., Plavix 75 daily, insulin, Imdur 30 daily, magnesium oxide, Prilosec, Percocet, and vancomycin. PHYSICAL EXAMINATION: VITAL SIGNS: The patient is afebrile. Heart rate 64, blood pressure 158/67. Consultation Report [facility] [address] [place] [place]. [address] NAME: KARLENE CASE : 57 STATUS : ADM IN PAT#: [id number] AGE: 60 ADM/REG DATE : 06/12/16 MR#: [id number] REPORT SERV DATE: 06/13/16 DICTATED BY: DION FITZGERALD DATE: 06/12/16 REPORT STATUS : Draft TRANSCRIBED BY: MODL DATE: 06/12/16 GENERAL: The patient is pleasant black female, no apparent distress. HEENT: Conjunctivae are anicteric, no xanthelasma, lips without cyanosis. NECK: Supple, normal JVP, carotids +2 without bruit. LUNGS: Clear to auscultation bilaterally, no wheezes, rales or rhonchi. CARDIOVASCULAR: Regular rate and rhythm. Normal S1 and S2. 1/6 to 2/6 systolic murmur. ABDOMEN: Soft, nontender, nondistended, with normal bowel sounds. No hepatomegaly. EXTREMITIES: No clubbing, cyanosis or edema. NEURO/PSYCH: Alert and oriented to person, place and time. No obvious neurologic deficits. Mood and affect normal. DATA: Electrocardiogram shows sinus rhythm with lateral ST-segment changes. Troponin stable at 0.09 and an elevated creatinine is 5.18. IMPRESSION: 1. Chest pain syndrome concerning for unstable angina. 2. Abnormal stress test. 3. Ischemic cardiomyopathy, left ventricular ejection fraction somewhat between 40% and 44%. 4. End-stage renal disease, on hemodialysis. 5. Hypertension and hypercholesterolemia. 6. Peripheral vascular disease with toe amputation. 7. Diabetes. RECOMMENDATIONS: Ms. Case had a chest pain syndrome, borderline troponins with an abnormal EKG. She has presumed coronary disease. Based on stress testing and significant coronary risk factors, recommended an arteriogram for evaluation and discussed with the risk of heart attack and stroke and she wishes to proceed. WO/MODL Dion Fitzgerald M.D., Ph.D, F.A.C.C. / [id number] CC: Kali GalphinFrandy M.D.
--- NOTE | ~2016-06-12 | HP ---
History And Physical [facility] [address] [place]. [address] NAME: KARLENE CASE : 57 STATUS : ADM IN [facility]#: [id number] AGE: 60 ADM/REG DATE : 06/12/16 MR#: [id number] REPORT SERV DATE: 06/12/16 DICTATED BY: KIMBERLY CARLTON DATE: 06/12/16 REPORT STATUS : Draft TRANSCRIBED BY: CLARKE DATE: 06/12/16 DATE OF ADMISSION: 06/12/2016 INDICATION FOR HOSPITALIZATION: Chest pain on dialysis. HISTORY OF PRESENT ILLNESS: Ms. Case is a 60-year-old female who dialyzes Friday, Friday, Friday at [facility] by left upper extremity AV fistula. She was recently discharged from [facility] on 06/06/2016 following amputation of the 1st and 2nd digit of her right foot with atherectomy and OPTICAL GLASS WET INSPECTOR of right lower extremity vasculature. She developed chest pain approximately 2 hours into her dialysis treatment with some associated chest heaviness. She was placed on O2 and given 1 sublingual nitroglycerin and the chest pain improved; however, chest heaviness persisted and she was transported to the emergency room. She has multiple underlying risk factors including hypertension, diabetes, and chronic ongoing tobacco use. PAST MEDICAL HISTORY: End-stage renal disease, dialyzing Friday, Friday, Friday by left upper extremity fistula; type 2 diabetes mellitus, on insulin therapy, status post 1st and 2nd toe amputations right foot; peripheral vascular disease, status post right lower extremity OPTICAL GLASS WET INSPECTOR and atherectomy intervention; hypertension; history of congestive heart failure; anemia; and hyperlipidemia. PAST SURGICAL HISTORY: , hysterectomy, OPTICAL GLASS WET INSPECTOR right lower extremity vasculature with atherectomy intervention, and digital amputation of 1st and 2nd digit of right foot, transmet on left foot. SOCIAL HISTORY: The patient lives with mother. Continues to smoke approximately 5 to 6 cigarettes per day. No alcohol or illicit drug use. MEDICATIONS: At home include Maalox with simethicone 15 mL daily p.r.n.; aspirin 81 mg every morning; Lipitor 40 mg 2 tablets at bedtime which had not been started as the patient could not obtain prescription; PhosLo 667 mg 4 tabs with meals; carvedilol 12.5 mg twice daily; Plavix 75 mg twice daily; NovoLog insulin sliding scale, Novolin N insulin, NPH insulin 30 units subcu q.a.m.; Imdur 30 mg extended release daily; magnesium oxide; Prilosec; Percocet; and vancomycin. ALLERGIES: NONE KNOWN. FAMILY HISTORY: Mother with congestive heart failure. No endstage renal disease. REVIEW OF SYSTEMS: HEENT: No change in visual acuity. No epistaxis. No otic infection. No pharyngitis. PULMONARY: Notes some shortness of breath with exertion. No cough or hemoptysis. CARDIAC: Chest pain on dialysis not completely relieved by 1 nitroglycerin tab with some associated nausea. No diaphoresis. GI: Some nausea with chest pain. No vomiting. No melena. : No gross hematuria, dysuria, or pyuria. History And Physical [address] [address] NAME: KARLENE CASE : 57 STATUS : ADM IN [facility]#: [id number] AGE: 60 ADM/REG DATE : 06/12/16 MR#: [id number] REPORT SERV DATE: 06/12/16 DICTATED BY: KIMBERLY CARLTON DATE: 06/12/16 REPORT STATUS : Draft TRANSCRIBED BY: CLARKE DATE: 06/12/16 MUSCULOSKELETAL: Some pain in the right foot following surgery. INTEGUMENT: No rash. No itching. NEUROLOGIC: No lateralizing weakness or seizure activity. Remainder of 12-point review of systems is negative. PHYSICAL EXAMINATION: GENERAL: Pleasant female, alert, cooperative. VITAL SIGNS: Blood pressure 147/53, temperature 97.4, pulse 59, and respiratory rate 20. HEENT: Eyes, no scleral icterus. Pupils equal and reactive to light. Extraocular movement intact. Nares patent. No lesions. Throat, no injection. Mucous membranes moist. NECK: Moist neck. No thyromegaly, masses, or bruits. CHEST/LUNGS: Late crackles at the bases posteriorly. No wheezing. No dullness. CARDIAC: Regular rate and rhythm. A 1 to 2/6 systolic ejection murmur. No gallop. No rub. ABDOMEN: Supple. Normoactive bowel sounds. Nontender. No hepatosplenomegaly. : Not performed. BREAST EXAM: Not performed. RECTAL EXAM: Not performed. EXTREMITIES: No edema. No calf tenderness. DERMIS: No rash. No skin lesions. MUSCULOSKELETAL: Evidence of trans met amputation in left foot with digital amputation of right foot. No other deformities. No joint tenderness. NEUROLOGIC: Cranial nerves intact. No lateralizing weakness. IMPRESSION: 1. Chest pain/acute coronary syndrome. 2. End-stage renal disease, dialyzing Friday, Friday, and Friday at [facility] by left upper extremity AV fistula. 3. Type 2 diabetes mellitus. 4. Recent digital amputation 1st and 2nd digit right foot. 5. Peripheral vascular disease with recent atherectomy and OPTICAL GLASS WET INSPECTOR right lower extremity. 6. Hypertension. 7. History of congestive heart failure. 8. Anemia. 9. Hyperlipidemia. 10.Ongoing chronic tobacco abuse. PLAN: 1. Lab. 2. Cardiology consult. MARIAN/CLARKE Kimberly History And Physical [address] [address] NAME: KARLENE CASE : 57 STATUS : ADM IN PAT#: [id number] AGE: 60 ADM/REG DATE : 06/12/16 MR#: [id number] REPORT SERV DATE: 06/12/16 DICTATED BY: KIMBERLY CARLTON DATE: 06/12/16 REPORT STATUS : Draft TRANSCRIBED BY: CLARKE DATE: 06/12/16 Frandy Carlton / [id number] CC: Frandy Bhakta M.D.
[2016-06-12 06:26] LABS: BASOPHILS 0.6 %; BASOPHILS ABSOLUTE 0.04 10/3/uL (0.0-0.16); EOSINOPHILS 2.3 %; EOSINOPHILS ABSOLUTE 0.16 10/3/uL (0.0-0.53); HEMOGLOBIN 10.5 g/dL (12.0-16.0); IMMATURE GRANULOCYTES 0.4 %; IMMATURE GRANULOCYTES ABSOLUTE 0.03 10/3/uL (0.0-0.11); LYMPHOCYTES 20.1 %; LYMPHOCYTES ABSOLUTE 1.42 10/3/uL (0.67-4.30); MEAN CORPUS HGB CONC 31.8 g/dL (32.0-36.0); MEAN CORPUSCULAR HEMOGLOB 30.1 pg (26.0-34.0); MEAN CORPUSCULAR VOLUME 94.6 fL (80-100); MEAN PLATELET VOLUME 12.1 fL (9.2-13.0); MONOCYTES 8.6 %; MONOCYTES ABSOLUTE 0.61 10/3/uL (0.21-1.20); NEUTROPHILS ABSOLUTE 4.82 10/3/uL (2.02-8.40); PLATELET COUNT 204 10/3/uL (150-400); RBC DISTRIBUTION WIDTH 12.7 % (12.0-16.0); RED CELL COUNT 3.49 10/6/uL (4.0-5.6); WHITE BLOOD CELLS 7.1 10/3/uL (4.5-10.5)
[2016-06-12 06:27] LABS: ER CBC TAT 0 Hrs 06 MinsNP; MANUAL DIFF NO %
[2016-06-12 06:31] LABS: PROTIME (NOT ORD) 13.5 SEC (12.0-14.5)
[2016-06-12 06:32] LABS: PARTIAL THROMBO TIME 28.6 SEC (22.5-37.2)
[2016-06-12 06:41] LABS: CALCIUM, SERUM 8.8 MG/DL (8.5-10.4); CHLORIDE, SERUM 97 MMOL/L (96-112); CO2 (CARBON DIOXIDE) 32 MMOL/L (24-34); POTASSIUM, SERUM 4.8 MMOL/L (3.5-5.3); SODIUM, SERUM 137 MMOL/L (135-148)
[2016-06-12 06:43] LABS: BUN (BLOOD UREA NITROGEN) 27 MG/DL (6-23); CHEST PAIN PROFILE TAT 0 Hrs 23 Mins; CREATININE 5.18 MG/DL (0.55-1.02); GFR AFRICAN AMERICAN 10 ML/MIN (>=60); GFR NON AFRICAN AMERICAN 8 ML/MIN (>=60); GLUCOSE, SERUM 233 MG/DL (60-99); TROPONIN I 0.09 NG/ML (<0.05)
[~2016-06-12 07:38] MED LIST: ASA5GR PO; ASAB PO; COREG12 PO; IMDUR30 PO; INSNOVN SC; LIPITOR40 PO; MAALOX PO; MAGOX4 PO; NOVOLOG SC; PCET PO; PHOSLO PO; PLAVIX PO; PRAVAC PO; PRILOSEC40 MG PO; VANCO1P IV
[2016-06-12 14:27] LABS: CPK 25 U/L (0-200)
[2016-06-12 14:28] LABS: CK-MB 0.7 NG/ML; TROPONIN I 0.09 NG/ML (<0.05)
[2016-06-12 22:36] LABS: CPK 27 U/L (0-200)
[2016-06-12 22:38] LABS: CK-MB 0.9 NG/ML; TROPONIN I 0.08 NG/ML (<0.05)
[2016-06-13 07:56] LABS: BASOPHILS 0.6 %; BASOPHILS ABSOLUTE 0.03 10/3/uL (0.0-0.16); EOSINOPHILS 3.8 %; HEMATOCRIT 30.8 % (36.0-48.0); HEMOGLOBIN 9.9 g/dL (12.0-16.0); IMMATURE GRANULOCYTES 0.4 %; IMMATURE GRANULOCYTES ABSOLUTE 0.02 10/3/uL (0.0-0.11); LYMPHOCYTES 27.8 %; LYMPHOCYTES ABSOLUTE 1.48 10/3/uL (0.67-4.30); MEAN CORPUS HGB CONC 32.1 g/dL (32.0-36.0); MEAN CORPUSCULAR HEMOGLOB 30.4 pg (26.0-34.0); MEAN CORPUSCULAR VOLUME 94.5 fL (80-100); MONOCYTES 8.5 %; MONOCYTES ABSOLUTE 0.45 10/3/uL (0.21-1.20); NEUTROPHILS 58.9 %; NEUTROPHILS ABSOLUTE 3.14 10/3/uL (2.02-8.40); PLATELET COUNT 157 10/3/uL (150-400); RBC DISTRIBUTION WIDTH 12.5 % (12.0-16.0); RED CELL COUNT 3.26 10/6/uL (4.0-5.6); WHITE BLOOD CELLS 5.3 10/3/uL (4.5-10.5)
[2016-06-13 08:01] LABS: MANUAL DIFF NO %
[2016-06-13 08:15] LABS: CALCIUM, SERUM 9.4 MG/DL (8.5-10.4); CHLORIDE, SERUM 98 MMOL/L (96-112); CO2 (CARBON DIOXIDE) 29 MMOL/L (24-34); PHOSPHORUS, SERUM 3.7 MG/DL (2.5-4.5); POTASSIUM, SERUM 5.2 MMOL/L (3.5-5.3); SODIUM, SERUM 135 MMOL/L (135-148)
[2016-06-13 08:16] LABS: ALBUMIN 2.8 G/DL (3.5-5.0); BUN (BLOOD UREA NITROGEN) 47 MG/DL (6-23); GFR AFRICAN AMERICAN 6 ML/MIN (>=60); GFR NON AFRICAN AMERICAN 5 ML/MIN (>=60); GLUCOSE, SERUM 179 MG/DL (60-99)
[2016-06-14 09:42] LABS: BASOPHILS 0.4 %; BASOPHILS ABSOLUTE 0.02 10/3/uL (0.0-0.16); EOSINOPHILS ABSOLUTE 0.16 10/3/uL (0.0-0.53); HEMOGLOBIN 9.4 g/dL (12.0-16.0); IMMATURE GRANULOCYTES 0.2 %; IMMATURE GRANULOCYTES ABSOLUTE 0.01 10/3/uL (0.0-0.11); LYMPHOCYTES 25.6 %; LYMPHOCYTES ABSOLUTE 1.35 10/3/uL (0.67-4.30); MANUAL DIFF NO %; MEAN CORPUS HGB CONC 33.6 g/dL (32.0-36.0); MEAN CORPUSCULAR HEMOGLOB 30.8 pg (26.0-34.0); MEAN CORPUSCULAR VOLUME 91.8 fL (80-100); MEAN PLATELET VOLUME 12.5 fL (9.2-13.0); MONOCYTES 8.2 %; MONOCYTES ABSOLUTE 0.43 10/3/uL (0.21-1.20); NEUTROPHILS 62.6 %; PLATELET COUNT 156 10/3/uL (150-400); RBC DISTRIBUTION WIDTH 12.5 % (12.0-16.0); RED CELL COUNT 3.05 10/6/uL (4.0-5.6); WHITE BLOOD CELLS 5.3 10/3/uL (4.5-10.5)
[2016-06-14 09:54] LABS: ALBUMIN 2.7 G/DL (3.5-5.0); BUN (BLOOD UREA NITROGEN) 59 MG/DL (6-23); CALCIUM, SERUM 8.7 MG/DL (8.5-10.4); CHLORIDE, SERUM 99 MMOL/L (96-112); CO2 (CARBON DIOXIDE) 26 MMOL/L (24-34); CREATININE 9.78 MG/DL (0.55-1.02); GFR AFRICAN AMERICAN 5 ML/MIN (>=60); GFR NON AFRICAN AMERICAN 4 ML/MIN (>=60); GLUCOSE, SERUM 147 MG/DL (60-99); PHOSPHORUS, SERUM 4.1 MG/DL (2.5-4.5); POTASSIUM, SERUM 5.7 MMOL/L (3.5-5.3); SODIUM, SERUM 135 MMOL/L (135-148)
[2016-06-14] MEDS ORDERED: MULTIVITAMI1 PO (19:32)
== END 2016-06-14 20:36 | disposition home or self-care (01) | DRG 286 ==
LOC: ER 07:38 → 2SO 11:08
PROVIDERS: Emergency Medicine; Internal Medicine Nephrology
PROC: 4A023N7 Measurement of Cardiac Sampling and Pressure, Left Heart, Percutaneous Approach (ICD-10-PCS; principal; 2016-06-13)
PROC: B2111ZZ Fluoroscopy of Multiple Coronary Arteries using Low Osmolar Contrast (ICD-10-PCS; 2016-06-13)
PROC: B2151ZZ Fluoroscopy of Left Heart using Low Osmolar Contrast (ICD-10-PCS; 2016-06-13)
PROC: 5A1D60Z (ICD-10-PCS; 2016-06-14)
DX: I25.110 Atherosclerotic heart disease of native coronary artery with unstable angina pectoris (principal); N18.6 End stage renal disease; I47.2 Ventricular tachycardia; I12.0 Hypertensive chronic kidney disease with stage 5 chronic kidney disease or end stage renal disease; I50.22 Chronic systolic (congestive) heart failure; E11.22 Type 2 diabetes mellitus with diabetic chronic kidney disease; I73.9 Peripheral vascular disease, unspecified; E78.5 Hyperlipidemia, unspecified; F17.210 Nicotine dependence, cigarettes, uncomplicated; E78.00 Pure hypercholesterolemia, unspecified; I25.5 Ischemic cardiomyopathy; I44.0 Atrioventricular block, first degree; Z99.2 Dependence on renal dialysis; Z79.4 Long term (current) use of insulin; I25.2 Old myocardial infarction; Z98.890 Other specified postprocedural states; Z89.421 Acquired absence of other right toe(s)
CPT/HCPCS: 71010; 80048; 80069; 80202; 82550; 82553; 82962; 83735; 84484; 85025; 85347; 85610; 85730; 93005; 93458; 99152; 99153; 99285; A9270-GY; C1725; C1769; C1887; C1894; G0257; J2250; J3010; J3370; Q9967

== ENCOUNTER 2016-12-12 18:06 | Inpatient (IN) | payer MEDICARE, OTHER ==
[~2016-12-12] VITALS: Ht 170.2 cm; Wt 83.9 kg
--- NOTE | ~2016-12-12 | OP ---
Record Of Operation [facility] [address] [place]. [address] NAME: KARLENE NAVA : 57 STATUS : ADM IN [facility]#: [id number] AGE: 61 ADM/REG DATE : 12/12/16 MR#: [id number] REPORT SERV DATE: 12/17/16 DICTATED BY: FRANKLYN RIVAS DATE: 12/17/16 REPORT STATUS : Draft TRANSCRIBED BY: CLARKE DATE: 12/17/16 DATE OF PROCEDURE: 12/17/2016 [employer]ILROAD EMERGENCY SERVICES MANAGER: None. PREOPERATIVE DIAGNOSIS: Right foot osteomyelitis. POSTOPERATIVE DIAGNOSIS: Right foot osteomyelitis. PROCEDURE: Right foot transmetatarsal amputation with adjacent tissue transfer. ANESTHESIA: General. HEMOSTASIS: None. ESTIMATED BLOOD LOSS: 15 mL. MATERIALS UTILIZED: 3-0 Vicryl, 3-0 Prolene. INJECTABLES: 20 mL of 0.5% ropivacaine plain. COMPLICATIONS: None. CONDITION: Stable. SPECIMENS: Bone and soft tissue sent off for microbiology as well as histopathology. JUSTIFICATION FOR PROCEDURE: The patient is a very pleasant, 61-year-old female, well known to my practice with the chief complaint of infection and osteomyelitis to her right 3rd toe. The patient previously had a hallux and 2nd toe amputation and has been revascularized recently by Dr. Euceda to optimize her for preparation for a transmetatarsal amputation of the right foot. The patient adamantly requests surgical intervention and is requesting a transmetatarsal amputation as she is tired of dealing with her digital ulcers that she does form. Due to the non-functionality of leaving a 4th and 5th toe, a transmetatarsal amputation has been planned. MRI was performed in the hospital confirming osteomyelitis to the right 3rd toe. The patient understands that due to her multiple comorbidities and poorly controlled diabetes mellitus as well as her being on hemodialysis that she may develop complications during the wound healing process. She also understands that this may be a staged procedure and she may require further procedures in the future. The patient understands all the risks, benefits, alternatives, and postop course in detail has been explained to her by myself. The patient understands as in all surgeries, there are no guarantees, none of which have been given, stated, or implied. DESCRIPTION OF PROCEDURE AND FINDINGS: The patient was wheeled into the operating room, placed on the operative room table in supine position at which time, general anesthesia was administered by Anesthesia Services and the right lower extremity was prepped, scrubbed, and Record Of Operation [address] [place]. [address] NAME: KARLENE NAVA : 57 STATUS : ADM IN PAT#: [id number] AGE: 61 ADM/REG DATE : 12/12/16 MR#: [id number] REPORT SERV DATE: 12/17/16 DICTATED BY: FRANKLYN RIVAS DATE: 12/17/16 REPORT STATUS : Draft TRANSCRIBED BY: CLARKE DATE: 12/17/16 draped in the usual sterile fashion. It should also be noted at this time there was no tourniquet utilized to the right foot. A skin marker was utilized at this time to plan out an incision, a distal fishmouth-type incision, a 15 blade was then utilized to make an incision along the planned incision line down to bone disarticulating the 3rd, 4th, and 5th toes and passed off the back table. A rongeur was utilized to collect bone from the 3rd toe which was gangrenous, to be sent off for microbiology. The remaining specimen will be sent off for histopathology. At this time, the wound was copiously irrigated and due to tension on the skin lines, the incision was lengthened medially, and a sagittal saw was utilized to resect the metatarsal heads of the 2nd, 3rd, 4th, and 5th metatarsals. The sagittal saw was utilized to make a cut in a dorsal distal to plantar proximal direction and the 5th metatarsal head was beveled to prevent any prominence laterally or plantarly. At this time, the wound was irrigated and an advancement tissue flap was made utilizing the plantar flap and to be transferred from plantar lateral dorsal medial in order to cover all the defects and have primary closure. It should be noted that at this time, the wound was copiously irrigated with sterile saline. There is noted to be no longer any devitalized tissue within the wound. There was noted to be satisfactory bleeding. Post irrigation, all surgeons and assistants removed their outer gloves and replaced with sterile gloves. All drapes were reinforced with sterile towels. Next, at this time, 3-0 Vicryl was utilized for deep closure followed by 3-0 Prolene for cutaneous reapproximation and a horizontal mattress as well as simple suture fashion. There was again noted to be no dog-ears or any tension on the skin lines. Next, the aforementioned postoperative nerve block was administered utilizing 20 mL of 0.5% ropivacaine plain. Adaptic soaked in Betadine was utilized to cover the incision followed by copious gauze, Kerlix, and an Beau bandage with light compression. It should be noted that the patient tolerated the procedure and anesthesia well and left the operating room with vital signs stable and neurovascular status intact to her right lower extremity. The patient will be transferred back to the floor under the services of Dr. Chua. We will continue to follow the patient while she is in-house and we will follow up the patient upon discharge. EDITA/CLARKE Franklyn Rivas DPM / [id number] CC: Frandy Lui M.D.
--- NOTE | ~2016-12-12 | HP ---
History And Physical [address] [place]. [address] NAME: KARLENE CASE : 57 STATUS : ADM IN [facility]#: [id number] AGE: 61 ADM/REG DATE : 12/12/16 MR#: [id number] REPORT SERV DATE: 12/13/16 DICTATED BY: DATE: REPORT STATUS : Draft TRANSCRIBED BY: MODL DATE: 12/13/16 DATE OF ADMISSION: 12/12/2016 CHIEF COMPLAINT: Osteomyelitis, right third toe, right foot. HISTORY OF PRESENT ILLNESS: Ms. Case is a 61-year-old black female with end-stage renal disease, dialyzes Friday, Friday, and Friday at [facility]. She saw her panama hat smearer yesterday, who asked us to admit her as a direct admit for osteomyelitis of right foot third toe. She has history of amputation of first and second toe on that foot as well for the same. In the setting of her diabetes and peripheral vascular disease, she is status post stenting to the right lower extremity by Dr. Euceda within the last two weeks. No fevers, chills, nausea, vomiting. She has had increasing pain. She states, she has been following with Podiatry for months in regard to this. PAST MEDICAL HISTORY: End-stage renal disease, type 2 diabetes, peripheral vascular disease, status post stenting to the right lower extremity, coronary artery disease is inoperable. After last amputation, she did have an SD. Hypertension, CHF, anemia, hyperlipidemia, hysterectomy. SOCIAL HISTORY: She lives with her mother. Continues to smoke. No alcohol or illicit drug use. ALLERGIES: NONE. MEDICATIONS: Aspirin, calcium acetate, Coreg, Plavix, Neurontin, NovoLog, Imdur, and omeprazole. FAMILY MEDICAL HISTORY: Negative for end-stage renal disease. REVIEW OF SYSTEMS: 12-point review of systems obtained and negative with the exception that in the HPI. PHYSICAL EXAMINATION: VITAL SIGNS: Temp 98.2, blood pressure 138/64, pulse 65, respiratory rate 18, O2 saturation is 93%. GENERAL: This is a pleasant cooperative black female. She is awake, alert, and oriented x3. No acute distress. Answers questions appropriately. HEENT: Normocephalic, atraumatic. Conjunctivae clear. Sclerae anicteric. Pupils are equal and round. Oral mucosa is moist. NECK: Supple. Carotids are brisk. Neck veins flat. No lymphadenopathy. RESPIRATIONS: Even and unlabored. Breath sounds clear to auscultation. HEART: Rate is regular. No murmur, rub, or gallop. ABDOMEN: Soft, nontender. Bowel sounds active. No masses or hepatosplenomegaly. No bruits. No CVA tenderness. BACK: Within normal limits. EXTREMITIES: No edema, cyanosis, clubbing. SKIN: Warm, dry, and intact. No unusual rash or skin lesions. History And Physical [address] [address] NAME: KARLENE CASE : 57 STATUS : ADM IN [facility]#: [id number] AGE: 61 ADM/REG DATE : 12/12/16 MR#: [id number] REPORT SERV DATE: 12/13/16 DICTATED BY: DATE: REPORT STATUS : Draft TRANSCRIBED BY: MODL DATE: 12/13/16 NEURO: No focal deficits. Mood and affect, pleasant and appropriate. Left upper arm with AV fistula, positive thrill and bruit. LABS AND X-RAY: Findings, sodium 138, potassium 4.8, chloride 101, CO2 of 28, BUN 49, creatinine of 10.9, phosphorus 6.4, calcium 9, albumin of 2.9. WBC 6.7, H and H 10 and 34, platelets 128,000. IMPRESSION: 1. Osteomyelitis, right foot, third toe. 2. End-stage renal disease. 3. Peripheral vascular disease, status post stenting. 4. Type 2 diabetes. 5. Coronary artery disease. 6. Hypertension. 7. Tobacco abuse. PLAN: Admit for IV antibiotics and cardiac clearance and plan for amputation of right third toe. Vascular consult has also been placed. Continue usual medications. Further orders and recommendations pending clinical course. JOHN/CLARKE CONCHITA Fortune / [id number] CC: Frandy Lui M.D.
--- NOTE | ~2016-12-12 | CN ---
Consultation Report [address] [place]. [address] NAME: KARLENE CASE : 57 STATUS : ADM IN PAT#: [id number] AGE: 61 ADM/REG DATE : 12/12/16 MR#: [id number] REPORT SERV DATE: 12/13/16 DICTATED BY: DION DIAS DATE: 12/13/16 REPORT STATUS : Draft TRANSCRIBED BY: MODL DATE: 12/13/16 CARDIOVASCULAR CONSULTATION DATE OF CONSULTATION: 12/13/[address] Peter Chua. HISTORY OF PRESENT ILLNESS: The patient is a 61-year-old woman with a history of hypertension, hypercholesterolemia, and type 2 diabetes. She has a history of end stage renal disease, on hemodialysis. She has a history of peripheral vascular disease, status post multiple percutaneous interventions of her lower extremities. She is admitted for planned amputation of her lower extremity. We were asked to see her in preoperative consultation. The patient was admitted earlier this year and underwent cardiac catheterization by Dr. Macedo on 06/13/2016. 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 She had moderate small vessel coronary disease with normal left ventricular ejection fraction managed medically. The patient reports no symptoms of chest pain or dyspnea. PAST MEDICAL HISTORY: 1. Hypertension. 2. Hypercholesterolemia. 3. Type 2 diabetes. 4. Peripheral vascular disease. 5. Coronary artery disease as above. 6. End stage renal disease, on hemodialysis. ALLERGIES: NO KNOWN DRUG ALLERGIES. MEDICATIONS: Include aspirin 81 mg daily, calcium, Coreg 12.5 mg twice a day, Plavix 75 mg daily, Neurontin, insulin, Imdur 30 mg daily, Prilosec 40 mg daily. SOCIAL HISTORY: She does not smoke or drink alcohol. FAMILY HISTORY: There is no family history of early coronary artery disease. REVIEW OF SYSTEMS: A complete review of systems was obtained, which is negative in detail except as mentioned above in the HPI. PHYSICAL EXAMINATION: VITAL SIGNS: Blood pressure 142/68, heart rate of 70, respiratory rate of 14. GENERAL: Comfortable in no acute distress. Consultation Report [address] [address] NAME: KARLENE CASE : 57 STATUS : ADM IN PAT#: [id number] AGE: 61 ADM/REG DATE : 12/12/16 MR#: [id number] REPORT SERV DATE: 12/13/16 DICTATED BY: DION DIAS DATE: 12/13/16 REPORT STATUS : Draft TRANSCRIBED BY: CLARKE DATE: 12/13/16 HEENT: Anicteric. No xanthelasma. Lips without cyanosis. NECK: No JVD. Carotids 2+ and symmetric. No carotid bruits. LUNGS: CTA bilaterally. No wheezes or rhonchi. No accessory muscle use. COR: RRR. Normally placed PMI. Normal S1 and S2. No murmurs, rubs or gallops. ABD: Soft, nontender, nondistended. Normal bowel sounds. No abdominal bruits. EXT: No clubbing, cyanosis or edema 2+ and symmetric distal pulses. SKIN: Warm. Dry. No venous stasis changes. MS: No kyphosis. NEURO/PSYCH: Oriented x3. No anxiety or depression. LABORATORY STUDIES: Laboratory studies were not ordered on admission. EK-lead EKG was not ordered on admission and I will order both. IMPRESSION: Given Ms. Case's stable coronary disease identified by cardiac catheterization in June of this year and her lack of symptoms and the low risk nature of her planned amputation surgery, I do not think any further cardiovascular evaluations necessary preoperatively. I think she will do well with this surgery, but if she does run into cardiovascular complications, please call me and I will be happy to assist in her management postop. BROOKE/CLARKE Dion Dias M.D. / [id number] CC: Frandy Lui M.D.
[~2016-12-12 18:06] MED LIST changes: +MULTIVITAMI1 PO
[2016-12-12] MEDS ORDERED: COREG12 PO (20:43)
[2016-12-12] MEDS ORDERED: PLAVIX PO (20:43)
[2016-12-12] MEDS ORDERED: NEUR100 PO (20:43)
[2016-12-12] MEDS ORDERED: PHOSLO PO (20:43)
[2016-12-12] MEDS ORDERED: IMDUR30 PO (20:44)
[2016-12-12] MEDS ORDERED: ASAB PO (20:44)
[2016-12-12] MEDS ORDERED: NOVOLOG SC (20:44)
[2016-12-12] MEDS ORDERED: PRILOSEC40 MG PO (20:44)
[2016-12-12] MEDS ORDERED: INSNOVN SC (20:45)
[2016-12-13 08:19] LABS: BASOPHILS 0.5 %; BASOPHILS ABSOLUTE 0.03 10/3/uL (0.0-0.16); EOSINOPHILS 3.6 %; EOSINOPHILS ABSOLUTE 0.24 10/3/uL (0.0-0.53); HEMOGLOBIN 10.6 g/dL (12.0-16.0); IMMATURE GRANULOCYTES 0.5 %; IMMATURE GRANULOCYTES ABSOLUTE 0.03 10/3/uL (0.0-0.11); LYMPHOCYTES 28.7 %; LYMPHOCYTES ABSOLUTE 1.91 10/3/uL (0.67-4.30); MEAN CORPUSCULAR VOLUME 93.4 fL (80-100); MEAN PLATELET VOLUME 12.7 fL (9.2-13.0); MONOCYTES 10.5 %; NEUTROPHILS 56.2 %; NEUTROPHILS ABSOLUTE 3.74 10/3/uL (2.02-8.40); PLATELET COUNT 128 10/3/uL (150-400); RBC DISTRIBUTION WIDTH 13.7 % (12.0-16.0); RED CELL COUNT 3.65 10/6/uL (4.0-5.6); WHITE BLOOD CELLS 6.7 10/3/uL (4.5-10.5)
[2016-12-13 08:20] LABS: HEMATOCRIT 34.1 % (36.0-48.0); MANUAL DIFF NO %; MEAN CORPUS HGB CONC 31.1 g/dL (32.0-36.0)
[2016-12-13 08:25] LABS: INTERNATIONAL NORMAL RATI 1.1 UNITS (-); PROTIME (NOT ORD) 13.8 SEC (12.0-14.5)
[2016-12-13 08:40] LABS: ALBUMIN 2.9 G/DL (3.5-5.0); CHLORIDE, SERUM 101 MMOL/L (96-112); CO2 (CARBON DIOXIDE) 28 MMOL/L (24-34); POTASSIUM, SERUM 4.8 MMOL/L (3.5-5.3); SODIUM, SERUM 138 MMOL/L (135-148)
[2016-12-13 08:41] LABS: BUN (BLOOD UREA NITROGEN) 49 MG/DL (6-23); GFR AFRICAN AMERICAN 4 ML/MIN (>=60); GFR NON AFRICAN AMERICAN 3 ML/MIN (>=60); GLUCOSE, SERUM 204 MG/DL (60-99); PHOSPHORUS, SERUM 6.4 MG/DL (2.5-4.5)
[2016-12-16 09:12] LABS: BASOPHILS 0.3 %; BASOPHILS ABSOLUTE 0.02 10/3/uL (0.0-0.16); HEMATOCRIT 30.1 % (36.0-48.0); HEMOGLOBIN 9.8 g/dL (12.0-16.0); IMMATURE GRANULOCYTES 0.3 %; IMMATURE GRANULOCYTES ABSOLUTE 0.02 10/3/uL (0.0-0.11); LYMPHOCYTES 20.2 %; LYMPHOCYTES ABSOLUTE 1.34 10/3/uL (0.67-4.30); MANUAL DIFF NO %; MEAN CORPUS HGB CONC 32.6 g/dL (32.0-36.0); MEAN CORPUSCULAR HEMOGLOB 29.7 pg (26.0-34.0); MEAN CORPUSCULAR VOLUME 91.2 fL (80-100); MEAN PLATELET VOLUME 12.8 fL (9.2-13.0); MONOCYTES 9.8 %; MONOCYTES ABSOLUTE 0.65 10/3/uL (0.21-1.20); NEUTROPHILS 66.4 %; NEUTROPHILS ABSOLUTE 4.42 10/3/uL (2.02-8.40); PLATELET COUNT 142 10/3/uL (150-400); RBC DISTRIBUTION WIDTH 13.1 % (12.0-16.0); WHITE BLOOD CELLS 6.7 10/3/uL (4.5-10.5)
[2016-12-16 09:24] LABS: ALBUMIN 2.6 G/DL (3.5-5.0); CALCIUM, SERUM 9.6 MG/DL (8.5-10.4); CHLORIDE, SERUM 100 MMOL/L (96-112); POTASSIUM, SERUM 5.6 MMOL/L (3.5-5.3); SODIUM, SERUM 134 MMOL/L (135-148)
[2016-12-16 09:28] LABS: BUN (BLOOD UREA NITROGEN) 76 MG/DL (6-23); CO2 (CARBON DIOXIDE) 23 MMOL/L (24-34); GFR AFRICAN AMERICAN 4 ML/MIN (>=60); GFR NON AFRICAN AMERICAN 3 ML/MIN (>=60); GLUCOSE, SERUM 156 MG/DL (60-99); PHOSPHORUS, SERUM 3.5 MG/DL (2.5-4.5)
[2016-12-17 06:46] LABS: BASOPHILS 0.4 %; BASOPHILS ABSOLUTE 0.03 10/3/uL (0.0-0.16); EOSINOPHILS 1.6 %; EOSINOPHILS ABSOLUTE 0.13 10/3/uL (0.0-0.53); HEMATOCRIT 30.5 % (36.0-48.0); HEMOGLOBIN 9.7 g/dL (12.0-16.0); IMMATURE GRANULOCYTES 0.4 %; IMMATURE GRANULOCYTES ABSOLUTE 0.03 10/3/uL (0.0-0.11); LYMPHOCYTES 16.8 %; LYMPHOCYTES ABSOLUTE 1.41 10/3/uL (0.67-4.30); MEAN CORPUS HGB CONC 31.8 g/dL (32.0-36.0); MEAN CORPUSCULAR HEMOGLOB 29.4 pg (26.0-34.0); MEAN CORPUSCULAR VOLUME 92.4 fL (80-100); MEAN PLATELET VOLUME 12.1 fL (9.2-13.0); MONOCYTES 10.6 %; MONOCYTES ABSOLUTE 0.89 10/3/uL (0.21-1.20); NEUTROPHILS 70.2 %; NEUTROPHILS ABSOLUTE 5.89 10/3/uL (2.02-8.40); PLATELET COUNT 144 10/3/uL (150-400); RBC DISTRIBUTION WIDTH 13.3 % (12.0-16.0); WHITE BLOOD CELLS 8.4 10/3/uL (4.5-10.5)
[2016-12-17 06:49] LABS: MANUAL DIFF NO %
[2016-12-17 06:59] LABS: ALBUMIN 2.8 G/DL (3.5-5.0); CALCIUM, SERUM 9.4 MG/DL (8.5-10.4); CHLORIDE, SERUM 98 MMOL/L (96-112); GLUCOSE, SERUM 172 MG/DL (60-99); POTASSIUM, SERUM 5.7 MMOL/L (3.5-5.3); SODIUM, SERUM 135 MMOL/L (135-148)
[2016-12-17 07:00] LABS: BUN (BLOOD UREA NITROGEN) 45 MG/DL (6-23); CO2 (CARBON DIOXIDE) 29 MMOL/L (24-34); CREATININE 8.49 MG/DL (0.55-1.02); GFR AFRICAN AMERICAN 5 ML/MIN (>=60); GFR NON AFRICAN AMERICAN 5 ML/MIN (>=60); PHOSPHORUS, SERUM 2.5 MG/DL (2.5-4.5)
[2016-12-18 13:38] LABS: ALBUMIN 2.6 G/DL (3.5-5.0); BUN (BLOOD UREA NITROGEN) 43 MG/DL (6-23); CALCIUM, SERUM 9.3 MG/DL (8.5-10.4); CHLORIDE, SERUM 102 MMOL/L (96-112); CO2 (CARBON DIOXIDE) 28 MMOL/L (24-34); GFR AFRICAN AMERICAN 5 ML/MIN (>=60); GFR NON AFRICAN AMERICAN 4 ML/MIN (>=60); GLUCOSE, SERUM 183 MG/DL (60-99); PHOSPHORUS, SERUM 2.6 MG/DL (2.5-4.5); SODIUM, SERUM 136 MMOL/L (135-148)
[2016-12-18 13:39] LABS: POTASSIUM, SERUM 5.4 MMOL/L (3.5-5.3)
[2016-12-18 14:00] LABS: BASOPHILS 0.2 %; BASOPHILS ABSOLUTE 0.01 10/3/uL (0.0-0.16); EOSINOPHILS 2.8 %; EOSINOPHILS ABSOLUTE 0.18 10/3/uL (0.0-0.53); HEMATOCRIT 29.6 % (36.0-48.0); HEMOGLOBIN 9.1 g/dL (12.0-16.0); IMMATURE GRANULOCYTES 0.3 %; IMMATURE GRANULOCYTES ABSOLUTE 0.02 10/3/uL (0.0-0.11); LYMPHOCYTES 18.1 %; LYMPHOCYTES ABSOLUTE 1.17 10/3/uL (0.67-4.30); MEAN CORPUS HGB CONC 30.7 g/dL (32.0-36.0); MEAN CORPUSCULAR HEMOGLOB 29.3 pg (26.0-34.0); MEAN PLATELET VOLUME 12.3 fL (9.2-13.0); MONOCYTES 11.3 %; MONOCYTES ABSOLUTE 0.73 10/3/uL (0.21-1.20); NEUTROPHILS 67.3 %; NEUTROPHILS ABSOLUTE 4.36 10/3/uL (2.02-8.40); PLATELET COUNT 148 10/3/uL (150-400); RBC DISTRIBUTION WIDTH 13.7 % (12.0-16.0); RED CELL COUNT 3.11 10/6/uL (4.0-5.6); WHITE BLOOD CELLS 6.5 10/3/uL (4.5-10.5)
[2016-12-18 14:04] LABS: MANUAL DIFF NO %; MEAN CORPUSCULAR VOLUME 95.2 fL (80-100)
[2016-12-19 07:08] LABS: BASOPHILS 0.7 %; BASOPHILS ABSOLUTE 0.04 10/3/uL (0.0-0.16); EOSINOPHILS 3.8 %; EOSINOPHILS ABSOLUTE 0.23 10/3/uL (0.0-0.53); HEMATOCRIT 31.2 % (36.0-48.0); HEMOGLOBIN 9.6 g/dL (12.0-16.0); IMMATURE GRANULOCYTES 0.3 %; IMMATURE GRANULOCYTES ABSOLUTE 0.02 10/3/uL (0.0-0.11); LYMPHOCYTES 20.3 %; LYMPHOCYTES ABSOLUTE 1.24 10/3/uL (0.67-4.30); MEAN CORPUS HGB CONC 30.8 g/dL (32.0-36.0); MEAN CORPUSCULAR HEMOGLOB 29.4 pg (26.0-34.0); MEAN CORPUSCULAR VOLUME 95.7 fL (80-100); MEAN PLATELET VOLUME 12.2 fL (9.2-13.0); MONOCYTES 12.1 %; MONOCYTES ABSOLUTE 0.74 10/3/uL (0.21-1.20); NEUTROPHILS 62.8 %; NEUTROPHILS ABSOLUTE 3.85 10/3/uL (2.02-8.40); PLATELET COUNT 152 10/3/uL (150-400); RBC DISTRIBUTION WIDTH 13.7 % (12.0-16.0); RED CELL COUNT 3.26 10/6/uL (4.0-5.6); WHITE BLOOD CELLS 6.1 10/3/uL (4.5-10.5)
[2016-12-19 07:10] LABS: MANUAL DIFF NO %
[2016-12-19 07:51] LABS: ALBUMIN 2.6 G/DL (3.5-5.0); CALCIUM, SERUM 9.7 MG/DL (8.5-10.4); CHLORIDE, SERUM 105 MMOL/L (96-112); CO2 (CARBON DIOXIDE) 32 MMOL/L (24-34); CREATININE 6.89 MG/DL (0.55-1.02); GFR AFRICAN AMERICAN 7 ML/MIN (>=60); GFR NON AFRICAN AMERICAN 6 ML/MIN (>=60); GLUCOSE, SERUM 177 MG/DL (60-99); PHOSPHORUS, SERUM 3.1 MG/DL (2.5-4.5); POTASSIUM, SERUM 5.1 MMOL/L (3.5-5.3); SODIUM, SERUM 142 MMOL/L (135-148)
[2016-12-19 09:02] LABS: BUN (BLOOD UREA NITROGEN) 32 MG/DL (6-23)
[2016-12-20 13:37] LABS: ALBUMIN 2.7 G/DL (3.5-5.0)
[2016-12-20 14:55] LABS: CALCIUM, SERUM 10.2 MG/DL (8.5-10.4); CHLORIDE, SERUM 101 MMOL/L (96-112); GFR AFRICAN AMERICAN 5 ML/MIN (>=60); GFR NON AFRICAN AMERICAN 4 ML/MIN (>=60); GLUCOSE, SERUM 205 MG/DL (60-99); PHOSPHORUS, SERUM 2.9 MG/DL (2.5-4.5); POTASSIUM, SERUM 5.7 MMOL/L (3.5-5.3); SODIUM, SERUM 138 MMOL/L (135-148)
[2016-12-20 14:56] LABS: BUN (BLOOD UREA NITROGEN) 53 MG/DL (6-23); CO2 (CARBON DIOXIDE) 26 MMOL/L (24-34); CREATININE 9.39 MG/DL (0.55-1.02)
[2016-12-20 15:06] LABS: BASOPHILS 0.2 %; BASOPHILS ABSOLUTE 0.01 10/3/uL (0.0-0.16); EOSINOPHILS 4.4 %; EOSINOPHILS ABSOLUTE 0.27 10/3/uL (0.0-0.53); HEMOGLOBIN 8.8 g/dL (12.0-16.0); IMMATURE GRANULOCYTES 0.3 %; IMMATURE GRANULOCYTES ABSOLUTE 0.02 10/3/uL (0.0-0.11); LYMPHOCYTES 20.4 %; LYMPHOCYTES ABSOLUTE 1.25 10/3/uL (0.67-4.30); MEAN CORPUS HGB CONC 31.7 g/dL (32.0-36.0); MEAN CORPUSCULAR HEMOGLOB 29.6 pg (26.0-34.0); MEAN CORPUSCULAR VOLUME 93.6 fL (80-100); MEAN PLATELET VOLUME 11.8 fL (9.2-13.0); MONOCYTES ABSOLUTE 0.61 10/3/uL (0.21-1.20); NEUTROPHILS 64.7 %; NEUTROPHILS ABSOLUTE 3.97 10/3/uL (2.02-8.40); PLATELET COUNT 145 10/3/uL (150-400); RBC DISTRIBUTION WIDTH 13.6 % (12.0-16.0); RED CELL COUNT 2.97 10/6/uL (4.0-5.6); WHITE BLOOD CELLS 6.1 10/3/uL (4.5-10.5)
[2016-12-20 15:12] LABS: HEMATOCRIT 27.8 % (36.0-48.0); MANUAL DIFF NO %
[2016-12-21] MEDS ORDERED: MIRALAX POWDER1 PKT PO (09:05)
[2016-12-21] MEDS ORDERED: VANCO1P (09:06)
== END 2016-12-21 11:09 | disposition home health service (06) | DRG 617 ==
LOC: ENRESERV → ENRESERVDT → ENRESERVTM → 2SO 19:41
PROVIDERS: Internal Medicine Nephrology; Nurse Practitioner; Podiatrist; Registered Nurse
PROC: 5A1D60Z (ICD-10-PCS; 2016-12-13)
PROC: 0Y6M0ZB Detachment at Right Foot, Partial 2nd Ray, Open Approach (ICD-10-PCS; 2016-12-17)
PROC: 0Y6M0ZC Detachment at Right Foot, Partial 3rd Ray, Open Approach (ICD-10-PCS; 2016-12-17)
PROC: 0Y6M0ZD Detachment at Right Foot, Partial 4th Ray, Open Approach (ICD-10-PCS; 2016-12-17)
PROC: 0Y6M0ZF Detachment at Right Foot, Partial 5th Ray, Open Approach (ICD-10-PCS; 2016-12-17)
PROC: 0Y6M0Z9 Detachment at Right Foot, Partial 1st Ray, Open Approach (ICD-10-PCS; principal; 2016-12-17 06:45)
DX: E11.621 Type 2 diabetes mellitus with foot ulcer (principal); M86.171 Other acute osteomyelitis, right ankle and foot; N18.6 End stage renal disease; E11.22 Type 2 diabetes mellitus with diabetic chronic kidney disease; I13.0 Hypertensive heart and chronic kidney disease with heart failure and stage 1 through stage 4 chronic kidney disease, or unspecified chronic kidney disease; I50.9 Heart failure, unspecified; E11.65 Type 2 diabetes mellitus with hyperglycemia; E11.69 Type 2 diabetes mellitus with other specified complication; E11.51 Type 2 diabetes mellitus with diabetic peripheral angiopathy without gangrene; I25.10 Atherosclerotic heart disease of native coronary artery without angina pectoris; E78.5 Hyperlipidemia, unspecified; E87.5 Hyperkalemia; F17.210 Nicotine dependence, cigarettes, uncomplicated; L97.519 Non-pressure chronic ulcer of other part of right foot with unspecified severity; Z79.4 Long term (current) use of insulin; Z99.2 Dependence on renal dialysis; I25.2 Old myocardial infarction; Z89.421 Acquired absence of other right toe(s); Z98.890 Other specified postprocedural states
CPT/HCPCS: 73630-RT; 73718-RT; 80069; 80202; 82962; 83735; 84132; 85025; 85610; 87040; 87070; 87077; 87186; 87205; 88307; 88311; 93005; 93926; 97161-GP; A9270-GY; G0257; G8978-CK-GP; G8979-CI-GP; J0690; J1885; J2250; J2370; J2795; J3010; J3370; P9047